=== PATIENT | female | born 1970 | race Caucasian/White ===

== ENCOUNTER 2018-02-23 13:27 | Emergency (ER) | payer BC ==
[~2018-02-23] VITALS: Ht 149.9 cm; Wt 83.9 kg
--- NOTE | ~2018-02-23 | EKG ---
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 FERNANDEZ : 1970 Requested By: Naman Lee Order Number: [id number] MD: Hussain Alaniz Measurements Intervals [place] Rate: 125 P: 69 DC: 136 QRS: 41 QRSD: 104 T: -26 QT: 319 QTc: 460 Interpretive Statements Sinus tachycardia RSR' in V1 or V2, right VCD Nonspecific ST and T wave abnormality No previous ECG available for comparison Electronically Signed On 02-24-2018 10:22:26 CDT by Hussain Alaniz [email or web address] <ELECTRONICALLY SIGNED> By: Hussain Alaniz MD, [facility] 02/24/18 1022 1344 43 Hussain Alaniz MD, FACC /EPI
[2018-02-23 14:14] LABS: ABSOLUTE NEUTROPHILS 3.8 thou/uL (1.4-8.2); BASOPHILS 0.5 % (0.0-2.0); EOSINOPHILS 1.1 % (0.0-3.0); HEMATOCRIT 40.8 % (37.0-47.0); LYMPHOCYTES 46.1 % (24.0-44.0); MCH 31.2 pg (26.0-34.0); MCHC 34.3 g/dL (28.0-37.0); MCV 90.8 fL (80.0-100.0); MONOCYTES 8.5 % (1.0-8.0); PLATELET COUNT 355 thou/uL (150-400); POLYS 43.8 % (36.0-66.0); WBC 8.6 thou/uL (4.0-11.0)
[2018-02-23 14:18] LABS: ANION GAP 7 mmol/L (7-16); BUN 12 mg/dL (7-18); CALCIUM 9.7 mg/dL (8.5-10.1); CHLORIDE 103 mmol/L (98-107); CO2 25 mmol/L (21-32); CREATININE 0.7 mg/dL (0.6-1.0); GLUCOSE 113 mg/dL (74-106); SODIUM 135 mmol/L (136-145)
[2018-02-23 14:27] LABS: TROPONIN-I < 0.04 ng/mL (<0.06)
[2018-02-23] MEDS ORDERED: NAPROSYN500 MG PO (17:41)
[2018-02-23 18:15] VITALS: BP 134/64
== END 2018-02-23 18:21 | disposition home or self-care (01) ==
LOC: ER 13:27
PROVIDERS: Emergency Medicine
DX: R07.89 Other chest pain (principal)